=== PATIENT | male | born 1990 ===

== ENCOUNTER 2024-04-21 12:26 | Emergency (ER) | payer OTHER, SELFPAY ==
--- NOTE | ~2024-04-21 | XR_ITS ---
EXAMINATION: X-ray left ankle X-ray left foot CLINICAL INFORMATION: Pain COMPARISON: None TECHNIQUE: Ankle 3 views. Foot 3 views. FINDINGS: Ankle: Soft tissue swelling of the ankle. No visible acute fracture or dislocation. The talar dome appears intact. Anterior calcaneal process appears intact. No erosions. No abnormal soft tissue calcification. Foot: Bony alignment is anatomic. No visible acute fracture or dislocation. Tarsometatarsal alignment is maintained. No erosions. No abnormal soft tissue calcification. Dorsal foot soft tissue swelling. XR/XR foot LT 2V IMPRESSION: Soft tissue swelling present. No radiographic evidence of acute fracture or dislocation. Electronically signed by: Renaldo Drake MD 04/21/2024 03:18 PM [facility]
--- NOTE | ~2024-04-21 | XR_ITS ---
EXAMINATION: X-ray left ankle X-ray left foot CLINICAL INFORMATION: Pain COMPARISON: None TECHNIQUE: Ankle 3 views. Foot 3 views. FINDINGS: Ankle: Soft tissue swelling of the ankle. No visible acute fracture or dislocation. The talar dome appears intact. Anterior calcaneal process appears intact. No erosions. No abnormal soft tissue calcification. Foot: Bony alignment is anatomic. No visible acute fracture or dislocation. Tarsometatarsal alignment is maintained. No erosions. No abnormal soft tissue calcification. Dorsal foot soft tissue swelling. XR/XR ankle LT min 3V IMPRESSION: Soft tissue swelling present. No radiographic evidence of acute fracture or dislocation. Electronically signed by: Renaldo Drake MD 04/21/2024 03:18 PM [facility]
[2024-04-21 12:51] VITALS: BP 150/63; PULSE 93; RESP 20; TEMP 36.8; O2SAT 98; BMI 32.4
--- NOTE | 2024-04-21 12:55 | ED_ITS ---
HPI - General Adult General Chief complaint: Extremity Injury, Lower Stated complaint: Toe inj L foot Time Seen by Provider: 04/21/24 15:27 Source: patient Mode of arrival: ambulatory Limitations: no limitations History of Present Illness ED Provider: Ebenezer Perez HPI narrative: 34 yold male with no pmh presents to the ED for left foot pain. Patient states he slipped on the snow and twisted his left ankle foot. Patient states occurred on Sunday. Patient states left big toe pain also. Patient denies falling to the ground or hitting head. Patient denies any loss of consciousness. Patient denies any chest pain, shortness of breath, abdominal pain, or any other concerning symptoms. Related Data Previous Rx's ?Medication ?Instructions ?Recorded naproxen 500 mg tablet 500 mg PO BID PRN pain 7 days #14 04/21/24 tabs Allergies Allergy/AdvReac Type Severity Reaction Status Date / Time No Known Allergies Allergy Verified 04/21/24 12:55 Review of Systems 2 Review of Systems: left foot pain Yes all other systems are reviewed and are negative [facility] Social History Social History Advance Directives: No Advance Directives Information Provided: No Do you have a plan to hurt others: No Plan Physical Exam ED Vital Signs: Vital Signs - 24 hr 04/21/24 12:51 04/21/24 16:28 Temperature 98.2 F 98.2 F Pulse Rate 93 93 Respiratory Rate 20 20 Blood Pressure 150/63 H 150/63 H Pulse Oximetry 98 98 Oxygen Delivery Method Room Air Room Air BMI result Body Mass Index 32.4 Const General: cooperative, healthy appearing, comfortable, no acute distress, well developed, alert, awake and Physically active Orientation/consciousness: patient oriented x3 HENMT Head: Yes normal to inspection, Yes No palpable skull fracture present, Yes normocephalic and Yes atraumatic Throat: Yes posterior oropharynx normal, Yes tonsils normal and Yes uvula midline Eyes General: appearance normal, both eyes and all related structures Neck Neck: Yes normal visual inspection, Yes full ROM, Yes no lymphadenopathy, Yes no meningeal signs, Yes trachea midline, Yes supple, No anterior neck swelling and No tender Chest Chest palpation & inspection: normal inspection of the chest and normal palpation of entire chest wall Resp Effort & Inspection: normal respiratory effort and able to speak in complete sentences Auscultation: clear to auscultation bilaterally Cardio Jugular venous distension: no JVD Heart sounds: S1 normal heart sound present and S2 normal heart sound present GI Inspection: Yes normal to inspection Palpation (GI): Soft to palpation, not firm, nontender, no guarding and not rigid General: No CVA tenderness and Yes no CVA tenderness Back/Spine/Pelvis Back: no CVA tenderness, No CVA tenderness and No back tenderness Skin General skin exam: no rashes or lesions noted, elasticity normal and turgor normal Neuro General: patient oriented x3, gait normal, tone normal, moves all extremities, Normal light touch and pain sensation, no meningeal signs, no focal motor deficits, CN's II-XI intact bilaterally and normal sensation to monofilament Extrem General: Yes normal to inspection, Yes full ROM and Yes capillary refill normal Ankle/foot/toe images: 2 1. Positive for tenderness on palpation. Negative for ecchymosis, erythema, crepitus, deformity, hotness, coldness, red streaks, or wounds. Rest of extremity normal. Motor/neuro/vascular exam intact Psych Appearance: grossly normal, well kempt and not disheveled Course Course Course Narrative: RME: 34-year-old male presents to ED left foot pain patient states he fell front of his house over the past weekend due to snow. Tenderness in the big left toe. Patient is able to bear weight. X-ray ordered. Medications Administered Discontinued Medications Generic Name Dose Route Start Last Admin Trade Name Freq PRN Reason Stop Dose Admin Ibuprofen 800 mg 04/21/24 15:49 04/21/24 16:16 Ibuprofen 800 Mg Tablet PO 04/21/24 15:50 800 mg ONCE ONE Administration Medical Decision Making Medical Decision Making MDM Narrative: 34-year-old male presents to ED for left foot pain after twisting foot when he slipped on snow this past Sunday. Patient denies falling to the ground or hitting head. X-ray negative for fracture or dislocation. Patient is placed in Lc wrap. Patient explained worrisome signs and informed to return to the ED immediately. Not suspecting DVT, compartment syndrome, arterial occlusion, cellulitis, osteomyelitis, necrotizing fasciitis, or any other life-threatening etiology. Differential Diagnosis Differential Diagnoses: The differential diagnosis associated with the presentation includes (Fracture, dislocation, sprain) Admission/Observation Consideration of admission/observation: Escalation of care including admission/observation considered Independent Interpretation I performed an independent interpretation of an: Plain X-Ray Radiology Impression Discussion of test interpretation with radiology: I have reviewed the radiologist's reading. Independent Historian Clinical information obtained from an independent historian. History obtained from or confirmed by: Other (patient) External Record Review External record reviewed: Other (prior visits) Prescription Management I considered prescription management with: Pain Medication Discharge Plan Discharge Clinical Impression: Ankle sprain and strain, Foot sprain Patient Disposition: Home, Self-Care Instructions: Ankle Sprain (ED), How to Use an Elastic Bandage (ED), R.I.C.E. Treatment (ED), Ankle Strain (ED), Cold Compress or Soak (ED) Additional Instructions: Recommend follow-up with primary care provider. Return to the ED immediately for any swelling, redness, bluish black discoloration, fever, chills, numbness/tingling, calf pain, chest pain, shortness of breath, or any other concerning symptoms. FINDINGS: Ankle: Soft tissue swelling of the ankle. No visible acute fracture or dislocation. The talar dome appears intact. Anterior calcaneal process appears intact. No erosions. No abnormal soft tissue calcification. Foot: Bony alignment is anatomic. No visible acute fracture or dislocation. Tarsometatarsal alignment is maintained. No erosions. No abnormal soft tissue calcification. Dorsal foot soft tissue swelling. XR/XR foot LT 2V IMPRESSION: Soft tissue swelling present. No radiographic evidence of acute fracture or dislocation. Prescriptions: New naproxen 500 mg tablet 500 mg PO BID PRN (Reason: pain) 7 Days Qty: 14 0RF Stand Alone Forms: Work/School Release Interventions: ED Discharge Assessment Last Done: 04/21/24 16:28 Discharge Date/Time: 04/21/24 16:29 Print Language: Bulgarian
[2024-04-21] MEDS: Ibuprofen 800 MG TABLET PO (16:16)
[2024-04-21 16:28] VITALS: BP 150/63; PULSE 93; RESP 20; TEMP 36.8; O2SAT 98
== END 2024-04-21 16:29 | disposition home or self-care (01) ==
PROVIDERS: Emergency Provider Emergency Medicine
DX: S93.402A Sprain of unspecified ligament of left ankle, initial encounter (principal); M25.572 Pain in left ankle and joints of left foot; X58.XXXA Exposure to other specified factors, initial encounter; Y93.89 Activity, other specified; Y92.89 Other specified places as the place of occurrence of the external cause; Y99.8 Other external cause status
CPT/HCPCS: 73610; 73620; 99283